=== PATIENT | female | born 1945 | race Caucasian/White ===

== ENCOUNTER → 2018-06-04 08:37 | Outpatient (BNVA) | payer MEDICARE, OTHER, SELFPAY | PROVIDERS: PCP Internal Medicine; Visit Provider Student in an Organized Health Care Education/Training Program | DX: M17.12 Unilateral primary osteoarthritis, left knee (principal) | CPT/HCPCS: 99213 ==

== ENCOUNTER → 2025-01-01 07:57 | Outpatient (BNVA) | payer MEDICARE, OTHER, SELFPAY | PROVIDERS: PCP Internal Medicine; Referring Provider Internal Medicine; Visit Provider Student in an Organized Health Care Education/Training Program | DX: M19.011 Primary osteoarthritis, right shoulder (principal); M19.012 Primary osteoarthritis, left shoulder | CPT/HCPCS: 99203 ==

== ENCOUNTER 2025-01-17 01:27 | Outpatient (CLI) | payer MEDICARE, SELFPAY ==
--- NOTE | 2025-01-17 08:15 | DI.RAD_ITS ---
Exam(s) RF JOINT INJ. FLUORO GUID RAD EXAM: RF JOINT INJ. FLUORO GUID RAD CLINICAL HISTORY: R SHOULDER PAIN, osteoarthritis rt shoulder, M19.011. TECHNIQUE: 2D and realtime digital imaging was performed. CONTRAST MATERIAL: Intra-articular Omnipaque 300 1.5 cc COMPARISON: Prior imaging studies reviewed. FINDINGS: This fluoroscopic guided right shoulder glenohumeral joint steroid injection was performed at the request of the referring orthopedic surgeon. Both shoulders were injected today. The right shoulder was performed 1st. Patient was consented prior to this procedure. Patient was placed in supine position on the fluoroscopy table. Using sterile technique and adequate skin-subcutaneous anesthesia, fluoroscopic guidance was used to advance a 22 gauge spinal needle into the glenohumeral joint using an anterior approach. Intra-articular position was confirmed with injection of 1.5 cc of Omnipaque 300 introduced via the indwelling needle. Thereafter a sterile solution of 40 milligrams of Depo-Medrol and 4 cc of 0.25 percent bupivacaine was injected into the joint. The indwelling needle was removed. A Band-Aid was applied Patient tolerated this procedure well and there were no intraprocedural complications. IMPRESSION: Successful right shoulder fluoroscopic guided glenohumeral joint steroid injection RADIATION DOSE DELIVERED: Ka,r=1.32mGy
--- NOTE | 2025-01-17 08:15 | DI.RAD_ITS ---
Exam(s) RF JOINT INJ. FLUORO GUID RAD EXAM: RF JOINT INJ. FLUORO GUID RAD CLINICAL HISTORY: L SHOULDER PAIN, osteoarthritis lt shoulder, M19.012. TECHNIQUE: 2D and realtime digital imaging was performed. CONTRAST MATERIAL: Intra-articular Omnipaque 300-1.5 cc COMPARISON: Prior relevant imaging studies were reviewed. FINDINGS: This left shoulder glenohumeral joint fluoroscopic guided steroid injection was performed at the request of the referring orthopedic surgeon. Patient was consented prior to this procedure. Patient placed in the supine position on the fluoroscopy suite. Using sterile technique and adequate skin-subcutaneous anesthesia, fluoroscopic guidance was used to advance a 22 gauge spinal needle into the glenohumeral joint using an anterior approach. Intra-articular position was confirmed with 1.5 cc of Omnipaque 300. Thereafter a sterile solution of 40 milligram Depo- Medrol and 4 cc of bupivicaine 0.25 percent was injected into the glenohumeral joint via the indwelling needle. The needle was then removed and a Band-Aid applied. Patient tolerated this procedure well and there were no intraprocedural complications. IMPRESSION: Successful left shoulder glenohumeral joint steroid injection using fluoroscopic guidance. RADIATION DOSE DELIVERED: Ka,r=1.3mGy
[2025-01-17] MEDS: methylPREDNISolone ACETATE 40 MG/ML VIAL IM ×2 (14:24→14:32)
[2025-01-17] MEDS: Omnipaque 300 MG/ML 10 ML BTL IJ ×2 (14:25→14:33)
[2025-01-17] MEDS: Bupivacaine 0.25% Pres-Free 10 ML VIAL IJ ×2 (14:26→14:34)
[2025-01-17] MEDS: Lidocaine 1% Pres-Free 30 ML VIAL IJ ×2 (14:27→14:33)
== END 2025-01-17 01:47 ==
PROVIDERS: PCP Internal Medicine; Visit Provider Student in an Organized Health Care Education/Training Program
DX: M19.011 Primary osteoarthritis, right shoulder (principal); M19.012 Primary osteoarthritis, left shoulder
CPT/HCPCS: 20610; 77002; J0665; J1010